=== PATIENT | male | born 1935 | race Caucasian/White ===

== ENCOUNTER 2021-07-01 14:18 | Emergency (ER) | payer MEDICARE, MEDICAID ==
[~2021-07-01] VITALS: Ht 350.5 cm; Wt 59.4 kg
--- NOTE | 2021-07-01 14:18 | NUR ---
PER MEDIC PATIENT RESIDES AT [facility], PATIENT IS TRACHED, VENT DEPENDENT, FRONT EDGER NOTED A DESATURATION TO 88%X 1, CALLED FOR PATIENT TO BE TRANSPORTED FOR EVALUATION. HX RESP FAILURE AFIB ANEMIA HYPERTENSION HYPERLIPIDEMIA INTERSTITIAL PULMONARY DISEASE CHF
[2021-07-01 14:46] VITALS: BP 109/62
--- NOTE | 2021-07-01 15:00 | NUR ---
SAID AT BEDSIDE FOR EXAM AND EVAL. ORDERS RECEIVED,
[2021-07-01] MEDS ORDERED: NACL 0.9% 500 ML IV ONE (15:10)
--- NOTE | 2021-07-01 15:15 | NUR ---
IV ACCESS, LABS DRAWN AND SENT, URINE OBTAINED VIA CATH.
[2021-07-01 15:47] LABS: BASOPHILS # (AUTO) 0.1 K/uL (0.00-0.22); BASOPHILS % (AUTO) 0.5 % (0.0-2.0); EOSINOPHILS # (AUTO) 0.1 K/uL (0-0.4); EOSINOPHILS % (AUTO) 0.9 % (0.0-4.0); HEMATOCRIT 29.6 % (36-52); HEMOGLOBIN 9.5 g/dL (12.0-18.0); LYMPHOCYTES # (AUTO) 0.7 K/uL (2.0-11.5); LYMPHOCYTES % (AUTO) 4.6 % (20.5-51.1); MEAN CORPUSCULAR HEMOGLOBIN 28 pg (27-31); MEAN CORPUSCULAR HGB CONC 32 g/dL (33-37); MEAN CORPUSCULAR VOLUME 87.6 fL (80-94); MONOCYTES # (AUTO) 1.2 K/uL (0.8-1.0); MONOCYTES % (AUTO) 8.1 % (1.7-9.3); NEUTROPHILS # (AUTO) 12.7 K/uL (1.8-7.7); NEUTROPHILS % (AUTO) 85.9 % (42.2-75.2); PLATELET COUNT (AUTO) 321 K/uL (140-450); RED BLOOD CELL COUNT(AUTO) 3.38 MIL/uL (4.20-6.10); RED CELL DISTRIBUTION WIDTH 16.2 % (11.6-13.7); WHITE BLOOD COUNT (AUTO) 14.7 K/uL (4.8-10.8)
[2021-07-01 15:50] LABS: APPEARANCE,URINE CLEAR (CLEAR); BILIRUBIN,URINE NEGATIVE (NEGATIVE); BLOOD, URINE TRACE-I (NEGATIVE); LEUKOCYTE ESTERASE ,URINE NEGATIVE (NEGATIVE); NITRITE, URINE NEGATIVE (NEGATIVE); UGLUCOSE NEGATIVE (NEGATIVE)
[2021-07-01] MEDS ORDERED: VANCOMYCIN 1,000 MG in DEXTROSE 5% 250 ML IV ONE (15:50)
[2021-07-01] MEDS ORDERED: CEFEPIME 500 MG in DEXTROSE 5% 50 ML IV ONE (15:50)
[2021-07-01 15:55] LABS: COLOR,URINE AMBER (YELLOW)
[2021-07-01] MEDS ORDERED: metroNIDAZOLE 500 MG/NS PREMIX 100 ML IV ONE (15:55)
[2021-07-01 16:01] LABS: ALBUMIN 2.2 g/dL (3.4-5.0); ANION GAP 7.1 (8-16); ASPARTATE AMINOTRANSFERASE 14 U/L (15-37); CARBON DIOXIDE 34.7 mmol/L (21-32); CHLORIDE 95 mmol/L (98-107); CREATININE 0.9 mg/dL (0.6-1.3); GLUCOSE 107 mg/dL (74-106); POTASSIUM 4.8 mmol/L (3.5-5.1); SODIUM SERUM 132 mmol/L (136-145); TOTAL BILIRUBIN 0.4 mg/dL (0.0-1.0); UREA NITROGEN, BLOOD 39 mg/dL (7-18)
[2021-07-01 16:04] LABS: PROTHROMBIN TIME 11.7 secs (10.8-13.4)
--- NOTE | 2021-07-01 16:30 | NUR ---
PATIENT IS RESTING, ON VENT RT AT BEDSIDE CHECKING ON PATIENT.
[2021-07-01 16:32] LABS: WBC,URINE NONE SEEN /HPF (0-5)
[2021-07-01] MEDS ORDERED: CEFEPIME 1,000 MG VIAL ONE (17:28)
[2021-07-01] MEDS ORDERED: FURO-572 GT (17:51)
[2021-07-01] MEDS ORDERED: VITA-16 PO (17:51)
[2021-07-01] MEDS ORDERED: FAMO-90 GT (17:51)
[2021-07-01] MEDS ORDERED: HEPA500056 SUBQ (17:55)
[2021-07-01] MEDS ORDERED: DILT-135 GT (17:55)
[2021-07-01] MEDS ORDERED: DIVA250E1 GT (17:55)
[2021-07-01] MEDS ORDERED: CEFU500T73 GT (17:55)
[2021-07-01] MEDS ORDERED: ACET-8386 PO (17:55)
[2021-07-01] MEDS ORDERED: ATOR10TA PO (17:55)
[2021-07-01] MEDS ORDERED: METO25TE2 GT (17:55)
--- NOTE | 2021-07-01 17:55 | NUR ---
PLAN IS TO TRANSFER PATIENT TO [place]. AWAITING PLAN OF CARE.
--- NOTE | 2021-07-01 19:20 | NUR ---
Received report from Shania JOHNSON for continuity of care
--- NOTE | 2021-07-01 19:30 | NUR ---
ASSUMED Care of pt at this time. pt is asleep arouses easily eyes open tracks well. non verbal has chronic trach on vent. pt appears comfortable repositioned. on cardiac monitorST 106 afebrile skin warm and dry. paln for pt is to be transferred to [facility]. [place] has no beds at this time.
--- NOTE | 2021-07-01 19:57 | NUR ---
REPORT TO JOL[place]A, CARE ENDORSED.
--- NOTE | 2021-07-01 20:15 | NUR ---
Pt becoming agitated pulled off leads and pox. attempting to pull out iv. pt grab my hand very jamal dand would not go. Soft restraints applied for pt safety as well as staff. will continue to monitor
--- NOTE | 2021-07-01 20:15 | NUR ---
Physician order given to place SOFT BILAT WRIST restraints to prevent PT PULLING ON LINES AND REMOVING TUBES AND LINES. Resraints placed with quick-release ties to bed frame. Pt under observation.
[2021-07-01] MEDS ORDERED: OLANZapine 10 MG VIAL IM ONE (20:30)
--- NOTE | 2021-07-01 22:15 | NUR ---
RESTRAINT CHECK +N/C TO BILAT WRISTS +ROM .
--- NOTE | 2021-07-01 22:44 | NUR ---
PT ASLEEP NOW RESTING EVEN UNLABORED RESPIRATIONS ON [address] [address] IN POSITION OF COMFORT. AWIATS TRANSFER TO [place] NO BEDS AVAIL.
--- NOTE | 2021-07-01 23:15 | NUR ---
PT REMAINS IN SOFT RESTRAINTS N/C INTACT AWAITS TRANSFER TO [facility]. RT MANAGING VENT.
[2021-07-02] MEDS ORDERED: metroNIDAZOLE 500 MG/NS PREMIX 100 ML IV ONE (01:08)
--- NOTE | 2021-07-02 01:10 | NUR ---
NEW IV PLACED IN RFA 20 G NS BOLUS GIVEN. PT TO BE TRANSFERRED TO [facility]. REMIANS ON C[facility] SHARPENER A FIB ON TRACH.
--- NOTE | 2021-07-02 02:15 | NUR ---
Patient to be transferred to [facility]. Is being transferred due to Higher Level of Care. Receiving facility has accepting physician and available space. ER physician has signed transfer form. Patient or responsible constitution party has agreed to transfer and signed form. Patient belongings inventoried and will be sent with patient. Copy of nursing notes, lab reports, EKG, Physicians Orders and X-rays to be sent with patient. Report called to Juli JOHNSON at receiving facility. [facility] ambulance service has been called for transfer. ETA is [phone]
[2021-07-02 02:32] VITALS: BP 97/56
--- NOTE | 2021-07-02 02:35 | NUR ---
REPORT TO [facility]. PT LEAVING DEPT NOW.
--- NOTE | 2021-07-06 20:02 | NUR ---
LATE ENTRY- LATE ENTRY- 0.9% NS IVF AND FLAGYL IVPB DISCONTINUED AT 0230
== END 2021-07-02 02:32 | disposition short-term general hospital (02) ==
LOC: MED 14:18
DX: A41.9 Sepsis, unspecified organism (principal); Z20.822 Contact with and (suspected) exposure to COVID-19; J18.9 Pneumonia, unspecified organism; J96.21 Acute and chronic respiratory failure with hypoxia; E87.1 Hypo-osmolality and hyponatremia; D64.9 Anemia, unspecified; I11.0 Hypertensive heart disease with heart failure; I50.9 Heart failure, unspecified; E78.5 Hyperlipidemia, unspecified; Z98.890 Other specified postprocedural states
CPT/HCPCS: 36415; 36600; 71045; 80053; 81001; 82803; 83605; 83880; 84484; 85025; 85610; 87040; 87086; 87426; 93005; 94002; 94760; 96365; 96367; 96372; 99285; J0692; J3490; J7030; J7060; U0003